=== PATIENT | male | born 1970 | race Caucasian/White ===

== ENCOUNTER 2016-12-24 12:47 | Inpatient (IN) | payer BC ==
[~2016-12-24] VITALS: Ht 177.8 cm; Wt 104.8 kg
[2016-12-25 09:43] VITALS: BP 176/99
[2016-12-25] MEDS ORDERED: HUMALOG100 UNIT/1 SC ×2 (10:34→10:44)
[2016-12-25] MEDS ORDERED: FENOFIBRATE160 M1 PO (10:35)
[2016-12-25] MEDS ORDERED: NEXIUM40 MG PO (10:36)
[2016-12-25] MEDS ORDERED: METFORMIN HCL1000 MG PO (10:36)
[2016-12-25] MEDS ORDERED: 24HOUR ALLERGY10 MG PO (10:37)
[2016-12-25] MEDS ORDERED: OXYCONTIN30 MG PO (10:39)
[2016-12-25] MEDS ORDERED: ZOCOR40 MG PO (10:39)
[2016-12-25] MEDS ORDERED: OXYCODONE HCL20 M1 PO (10:40)
[2016-12-25] MEDS ORDERED: DIAZEPAM5 MG PO (10:44)
[2016-12-25] MEDS ORDERED: LEVEMIR100 UNIT/2 SC (10:46)
[2016-12-25] MEDS ORDERED: MEDROL8 MG PO (10:47)
[2016-12-25] MEDS ORDERED: APLISOL5 TUB UNIT ID (10:47)
[2016-12-25] MEDS ORDERED: DAILY VALUE1 EACH PO (10:47)
[2016-12-25] MEDS ORDERED: TYLENOL REGULA325 MG PO (10:48)
[2016-12-25 11:25] LABS: POINT-OF-CARE METER ID UU14174215
[2016-12-25 13:15] VITALS: BP 159/75
[2016-12-25 15:15] VITALS: BP 141/91
[2016-12-25 16:24] LABS: POINT-OF-CARE METER ID UU14174215
[2016-12-25 20:54] LABS: POINT-OF-CARE METER ID UU14174215
[2016-12-25 23:55] VITALS: BP 158/72
[2016-12-26 04:33] LABS: HEMATOCRIT 40.7 % (38.0-50.0); MCH 28.5 PG (29.0-34.0); MCHC 33.4 G/DL (30.0-36.0); MCV 85.1 FL (86-99); MEAN PLAT.VOLUME 9.8 uM^3 (9.0-12.4); PLATELET COUNT 438 K/uL (156-360); RBC DIS.WIDTH-CV 13.5 % (11.8-14.6); RBC DIS.WIDTH-SD 41.7 % (39-53); RED BLOOD COUNT 4.78 M/uL (4.00-5.50); WHITE BLOOD COUNT 11.6 K/uL (4.1-10.2)
[2016-12-26 04:50] LABS: CHLORIDE 100 mEq/L (99-109); POTASSIUM 4.8 mEq/L (3.7-5.4); SODIUM 137 mEq/L (136-147)
[2016-12-26 04:52] LABS: GLUCOSE 167 mg/dL (70-99)
[2016-12-26 04:53] LABS: ANION GAP 9 MEQ/L (2-14)
[2016-12-26 04:54] LABS: TOTAL BILIRUBIN 0.5 mg/dL (0.0-1.0)
[2016-12-26 04:56] LABS: ALKALINE PHOSPHATASE 64 IU/L (3-129); GFR ESTIMATE (CALCULATED) > 59 mL/min/
[2016-12-26 04:57] LABS: UREA NITROGEN (BUN) 16 mg/dL (9-23)
[2016-12-26 05:38] VITALS: BP 127/77
[2016-12-26 07:48] LABS: POINT-OF-CARE METER ID UU14174215
[2016-12-26 12:04] LABS: POINT-OF-CARE METER ID UU14174215
[2016-12-26 15:13] VITALS: BP 110/84
[2016-12-26 16:45] LABS: POINT-OF-CARE METER ID UU14174215; POINT-OF-CARE USER ID ENVGAF
[2016-12-26 21:29] LABS: POINT-OF-CARE METER ID UU14174215; POINT-OF-CARE USER ID 610211320
[2016-12-27 05:56] VITALS: BP 140/85
[2016-12-27 07:09] LABS: POINT-OF-CARE METER ID UU13113720; POINT-OF-CARE USER ID AHSSSJB31
[2016-12-27 11:58] LABS: POINT-OF-CARE METER ID UU13113720; POINT-OF-CARE USER ID AHSSSJB31
[2016-12-27 15:40] VITALS: BP 151/89
[2016-12-27 16:28] LABS: POINT-OF-CARE METER ID UU13113720
[2016-12-27 21:42] LABS: POINT-OF-CARE METER ID UU13113720
[2016-12-28 05:45] VITALS: BP 119/82
[2016-12-28 07:30] LABS: POINT-OF-CARE METER ID UU13113720; POINT-OF-CARE USER ID ENVGAF
[2016-12-28 11:26] LABS: POINT-OF-CARE METER ID UU14174215; POINT-OF-CARE USER ID ENVGAF
[2016-12-28 15:19] VITALS: BP 130/79
[2016-12-28 16:50] LABS: POINT-OF-CARE METER ID UU14174215
[2016-12-28 21:05] LABS: POINT-OF-CARE METER ID UU13113720
[2016-12-29 05:54] VITALS: BP 141/90
[2016-12-29 07:10] LABS: POINT-OF-CARE METER ID UU14174215; POINT-OF-CARE USER ID ENVGAF
[2016-12-29 11:19] LABS: POINT-OF-CARE METER ID UU14174215; POINT-OF-CARE USER ID ENVGAF
[2016-12-29 15:49] VITALS: BP 142/90
[2016-12-29 16:34] LABS: POINT-OF-CARE METER ID UU14174215
[2016-12-29 21:20] LABS: POINT-OF-CARE METER ID UU13113720
[2016-12-30 05:05] VITALS: BP 143/94
[2016-12-30 05:28] VITALS: BP 140/80
[2016-12-30 07:25] LABS: POINT-OF-CARE METER ID UU14174215; POINT-OF-CARE USER ID AHSSSJB31
[2016-12-30 11:53] LABS: POINT-OF-CARE METER ID UU14174215; POINT-OF-CARE USER ID AHSSSJB31
[2016-12-30 15:29] VITALS: BP 139/89
[2016-12-30 16:56] LABS: POINT-OF-CARE METER ID UU13113720
[2016-12-30 22:07] LABS: POINT-OF-CARE METER ID UU14174215
[2016-12-31 05:00] VITALS: BP 124/78
[2016-12-31 07:43] LABS: POINT-OF-CARE METER ID UU14174215; POINT-OF-CARE USER ID AHSSSJB31
[2016-12-31 11:37] LABS: POINT-OF-CARE METER ID UU14174215
[2016-12-31 15:17] VITALS: BP 143/83
[2016-12-31 16:49] LABS: POINT-OF-CARE METER ID UU14174215
[2016-12-31 21:30] LABS: POINT-OF-CARE METER ID UU14174215
[2017-01-01 05:10] VITALS: BP 145/82
[2017-01-01 06:44] LABS: POINT-OF-CARE METER ID UU13113720; POINT-OF-CARE USER ID ENVGAF
[2017-01-01 11:49] LABS: POINT-OF-CARE METER ID UU13113720
[2017-01-01 15:56] VITALS: BP 141/84
[2017-01-01 16:20] LABS: POINT-OF-CARE METER ID UU13113720
[2017-01-01 21:08] LABS: POINT-OF-CARE METER ID UU14174215
[2017-01-02 05:40] VITALS: BP 140/77
[2017-01-02 06:59] LABS: POINT-OF-CARE METER ID UU13113720
[2017-01-02 11:39] LABS: POINT-OF-CARE METER ID UU13113720
[2017-01-02 15:34] VITALS: BP 134/79
[2017-01-02 16:34] LABS: POINT-OF-CARE METER ID UU14174215
[2017-01-02 21:15] LABS: POINT-OF-CARE METER ID UU14174215
[2017-01-03 05:47] VITALS: BP 130/84
[2017-01-03 08:13] LABS: POINT-OF-CARE METER ID UU14174215; POINT-OF-CARE USER ID ENVGAF
[2017-01-03 11:25] LABS: POINT-OF-CARE METER ID UU13113720; POINT-OF-CARE USER ID ENVGAF
[2017-01-03] MEDS ORDERED: POLYETHYLENE GL17 GM PO (14:02)
[2017-01-03] MEDS ORDERED: FOLIC ACID1 MG PO (14:02)
[2017-01-03] MEDS ORDERED: SENNA PLUS TAB1 EACH PO (14:02)
[2017-01-03] MEDS ORDERED: ASCORBIC ACID500 M3 PO (14:02)
[2017-01-03] MEDS ORDERED: LIDOCAINE700 MG TD (14:02)
[2017-01-03] MEDS ORDERED: GABAPENTIN100 MG PO (14:02)
[2017-01-03 15:57] VITALS: BP 124/79
[2017-01-03 16:23] LABS: POINT-OF-CARE METER ID UU14174215
[2017-01-03 21:42] LABS: POINT-OF-CARE METER ID UU14174215
[2017-01-04 05:11] VITALS: BP 141/75
[2017-01-04 07:06] LABS: POINT-OF-CARE METER ID UU14174215
[2017-01-04 08:27] LABS: BASOPHIL COUNT 0.1 K/uL (0-0.1); EOSINOPHIL (%) 2.2 % (0-5); EOSINOPHIL COUNT 0.2 K/uL (0-0.3); HEMATOCRIT 39.3 % (38.0-50.0); IMMATURE GRANULOCYTE (%) 0.5 % (0.0-0.7); INSTRUMENT ABS NEUTROPHIL CT 5.2 K/uL; LYMPHOCYTE COUNT 1.4 K/uL (1.0-2.8); MCH 27.4 PG (29.0-34.0); MCHC 31.6 G/DL (30.0-36.0); MCV 86.9 FL (86-99); MEAN PLAT.VOLUME 10.1 uM^3 (9.0-12.4); MONOCYTE (%) 6.1 % (3-12); MONOCYTE COUNT 0.5 K/uL (0-0.8); NEUTROPHIL COUNT 5.2 K/uL (1.8-6.4); PLATELET COUNT 368 K/uL (156-360); RBC DIS.WIDTH-CV 13.1 % (11.8-14.6); RBC DIS.WIDTH-SD 41.5 % (39-53); RED BLOOD COUNT 4.52 M/uL (4.00-5.50)
[2017-01-04 08:36] LABS: PROTHROMBIN TIME 10.6 (9.2-11.2); PTT 28.4 (25-32)
[2017-01-04 08:40] LABS: WHITE BLOOD COUNT 7.4 K/uL (4.1-10.2)
[2017-01-04 08:57] LABS: ANION GAP 10 MEQ/L (2-14); CHLORIDE 101 MEQ/L (99-109); SAMPLE HEMOLYSIS CHECK 0; SAMPLE ICTERIC CHECK 0; SAMPLE LIPEMIA CHECK 0; SODIUM 139 MEQ/L (136-147)
[2017-01-04 08:58] LABS: TROP-I INTERPRETATION NEGATIVE; TROPONIN-I < 0.01 ng/mL (0.0-0.30)
[2017-01-04 09:02] LABS: GFR ESTIMATE (CALCULATED) > 59 mL/min/; GLUCOSE 199 mg/dL (70-99); UREA NITROGEN (BUN) 10 mg/dL (9-23)
[2017-01-04 09:29] VITALS: BP 155/97
[2017-01-04 09:30] VITALS: BP 180/102
[2017-01-05] MEDS ORDERED: OXAYDO5 MG PO (07:46)
[2017-01-05] MEDS ORDERED: GABAPENTIN300 MG PO (12:17)
[2017-01-05] MEDS ORDERED: ASPIR-LOW81 MG PO (12:20)
[2017-01-05 20:17] LABS: POINT-OF-CARE METER ID UU14174216
[2017-01-05 20:17] LABS: POINT-OF-CARE METER ID UU13113698
== END 2017-01-04 10:54 | DRG 950 ==
LOC: 3WEST 12:47
PROVIDERS: Hospitalist; Physical Medicine & Rehabilitation Pain Medicine
PROC: F07M0ZZ Range of Motion and Joint Mobility Treatment of Musculoskeletal System - Whole Body (ICD-10-PCS; principal; 2016-12-25)
DX: Z48.89 Encounter for other specified surgical aftercare (principal); R26.2 Difficulty in walking, not elsewhere classified; Z98.1 Arthrodesis status; M41.9 Scoliosis, unspecified; E11.319 Type 2 diabetes mellitus with unspecified diabetic retinopathy without macular edema; E11.49 Type 2 diabetes mellitus with other diabetic neurological complication; M70.61 Trochanteric bursitis, right hip; R21 Rash and other nonspecific skin eruption; D72.829 Elevated white blood cell count, unspecified; K21.9 Gastro-esophageal reflux disease without esophagitis; E78.00 Pure hypercholesterolemia, unspecified; G47.30 Sleep apnea, unspecified; K59.00 Constipation, unspecified; E66.9 Obesity, unspecified; Z68.33 Body mass index [BMI] 33.0-33.9, adult
CPT/HCPCS: 70450; 70496; 70498; 73502; 80048; 80053; 80061; 82948; 84484; 85025; 85027; 85610; 85730; 94799; 97110 GO; 97530 GP; J1815; J2310

== ENCOUNTER 2017-01-04 10:16 | Observation (INO) | payer BC ==
[~2017-01-04 10:16] MED LIST: 24HOUR ALLERGY10 MG PO; APLISOL5 TUB UNIT ID; ASCORBIC ACID500 M3 PO; DAILY VALUE1 EACH PO; DIAZEPAM5 MG PO; FENOFIBRATE160 M1 PO; FOLIC ACID1 MG PO; GABAPENTIN100 MG PO; HUMALOG100 UNIT/1 SC; LEVEMIR100 UNIT/2 SC; LIDOCAINE700 MG TD; MEDROL8 MG PO; METFORMIN HCL1000 MG PO; NEXIUM40 MG PO; OXYCODONE HCL20 M1 PO; OXYCONTIN30 MG PO; POLYETHYLENE GL17 GM PO; SENNA PLUS TAB1 EACH PO; TYLENOL REGULA325 MG PO; ZOCOR40 MG PO
[2017-01-04 11:30] VITALS: BP 179/99
[2017-01-04 12:21] LABS: BASE EXCESS 2.5 mEq/L (-3 to +3); BICARBONATE 26.3 mEq/L (22-26); CARBOXY HGB 2.2 % (0-5); COMMENTS - BLOOD GASES A+C+; DEVICE RA; METHEMOGLOBIN 1.5 % (0-1.5); PCO2 37 mm Hg (35-45); PO2 71 mm Hg (80-100); SITE RR; TOTAL RESP RATE 30 resp/min; pH 7.46 (7.35-7.45)
[2017-01-04 13:08] LABS: FASTING STATUS NONFASTING
[2017-01-04 13:36] LABS: HDL CHOLESTEROL 28 MG/DL (Desirable>=40); LDL CHOLESTEROL 61 mg/dL (Desirable<100); NON-HDL CHOLESTEROL 113 mg/dL (Desirable<160); TOTAL CHOLESTEROL 141 mg/dL (Desirable<200); TRIGLYCERIDES 260 MG/DL (Normal: <150)
[2017-01-04 14:15] LABS: Estimated Average Glucose 163 mg/dL (70-123); HEMOGLOBIN A1c (GLYCOHEMOGLOB) 7.3 % HGB (Below 5.7)
[2017-01-04 15:32] LABS: ADD MIUA? NO; BILIRUBIN NEGATIVE; BLOOD NEGATIVE; COLOR YELLOW ((YELLOW)); GLUCOSE (STRIP) 150; KETONES 20; LEUKOCYTES NEGATIVE; NITRITE NEGATIVE; PROTEIN (STRIP) NEGATIVE; SPECIFIC GRAVITY 1.028 (1.000-1.030); UCUL ADDED? NO; UROBILINOGEN 0.2 MG/DL (0.2-1.0)
[2017-01-04 16:40] LABS: INFLUENZA A VIRAL ANTIGEN NEGATIVE; INFLUENZA B VIRAL ANTIGEN NEGATIVE
[2017-01-04 17:00] VITALS: BP 143/89
[2017-01-04 20:25] VITALS: BP 126/85
[2017-01-04 23:06] VITALS: BP 137/72
[2017-01-05 03:58] VITALS: BP 113/77
[2017-01-05 07:00] LABS: HEMATOCRIT 36.2 % (38.0-50.0); MCH 27.7 PG (29.0-34.0); MCV 86.4 FL (86-99); MEAN PLAT.VOLUME 10.4 uM^3 (9.0-12.4); PLATELET COUNT 353 K/uL (156-360); RBC DIS.WIDTH-CV 13.2 % (11.8-14.6); RBC DIS.WIDTH-SD 40.8 % (39-53); RED BLOOD COUNT 4.19 M/uL (4.00-5.50); WHITE BLOOD COUNT 8.6 K/uL (4.1-10.2)
[2017-01-05 07:21] LABS: ALKALINE PHOSPHATASE 58 IU/L (3-129); ANION GAP 11 MEQ/L (2-14); CHLORIDE 102 MEQ/L (99-109); GFR ESTIMATE (CALCULATED) > 59 mL/min/; GLUCOSE 265 mg/dL (70-99); POTASSIUM 4.1 MEQ/L (3.7-5.4); SAMPLE HEMOLYSIS CHECK 0; SAMPLE ICTERIC CHECK 0; SAMPLE LIPEMIA CHECK 0; SODIUM 139 MEQ/L (136-147); TOTAL BILIRUBIN 0.4 MG/DL (0.0-1.0); UREA NITROGEN (BUN) 9 mg/dL (9-23)
[2017-01-05 07:36] LABS: POINT-OF-CARE METER ID UU13113781
[2017-01-05 07:45] VITALS: BP 133/85
[2017-01-05] MEDS ORDERED: OXAYDO5 MG PO (07:46)
[2017-01-05 11:30] LABS: POINT-OF-CARE METER ID UU13113781
[2017-01-05] MEDS ORDERED: GABAPENTIN300 MG PO (12:17)
[2017-01-05] MEDS ORDERED: ASPIR-LOW81 MG PO (12:20)
[2017-01-05 12:24] VITALS: BP 128/85
== END 2017-01-05 15:04 | disposition home or self-care (01) ==
LOC: 4EAST 10:16
PROVIDERS: Hospitalist; Internal Medicine
DX: G45.9 Transient cerebral ischemic attack, unspecified (principal); R47.01 Aphasia; R26.2 Difficulty in walking, not elsewhere classified; E11.9 Type 2 diabetes mellitus without complications; G89.29 Other chronic pain; M54.9 Dorsalgia, unspecified; E78.00 Pure hypercholesterolemia, unspecified; M41.9 Scoliosis, unspecified; E66.9 Obesity, unspecified; Z68.31 Body mass index [BMI] 31.0-31.9, adult
CPT/HCPCS: 36600; 70450; 71010; 80053; 80061; 81003; 82140; 82803; 82948; 83036; 85027; 87040; 87502; G0378; J1815